=== PATIENT | female | born 1955 | race Caucasian/White ===

== ENCOUNTER → 2016-06-27 | Day surgery (SDC) | payer OTHER ==
[~2016-06-27] VITALS: Ht 157.5 cm; Wt 70.0 kg
[~2016-06-27] MED LIST: ACETAMINOPHEN/HYDROcodone 325 MG/5 MG TAB ONE; ACETAMINOPHEN/HYDROcodone 325 MG/7.5 MG TAB ONE; AMLO10TA2 PO; BUPIVACAINE HCL PF 0.5% 30 ML VIAL ONE; CELE100C PO; CEPH-460 PO; EXFO10TA2 PO; FENO2.5C PO; HYDR-4107 PO; LACTATED RINGER'S 1000 ML INJ 1,000 ML ONE; LEVO.05 PO; LEVO.2 PO; LIDOCAINE HCL 2% 50 ML VIAL ONE; LORTA5 PO; MONT10TA2 PO; NORC5TAB PO; OMEP40CA2 PO; PRAV20TA2 PO; SUCR1TAB PO; TRIAMCINOLONE ACETONIDE 40 MG/ML VIAL ONE; VITA100064 PO; VITA400C28 PO; ZYRT10CA PO; ZYRT10TA12 PO; ceFAZolin INJ 1,000 MG VIAL ONE
[2016-06-27 09:58] VITALS: BP 117/82; PULSE 66; RESP 18; TEMP 98.1; O2SAT 100
[2016-06-27 10:18] LABS: MEAN CELL VOLUME 81.8 FL (80.0-100.0); MEAN CORPUSCULAR HEMOGLOBIN 27.2 PG (27.0-34.0); MEAN CORPUSCULAR HGB CONC 33.2 % (32.0-36.0); PLATELET COUNT 249 TH/MM3 (150-450); RED BLOOD COUNT 4.52 MIL/MM3 (4.00-5.30); REVIEW FLAG FINAL; WHITE BLOOD COUNT 6.3 TH/MM3 (4.0-11.0)
[2016-06-27 12:05] VITALS: BP 135/83; PULSE 74; RESP 16; TEMP 98.1; O2SAT 98
--- NOTE | 2016-06-28 18:57 | EKG ---
Date Performed: 06/27/2016 Time Performed: 10:00:10 PTAGE: 60 years EKG: Sinus rhythm Rightward axis Anteroseptal T wave changes are nonspecific Low QRS voltages in precordial leads T wa ve inversion in V2 is new from the prior tracing Borderline ECG PREVIOUS TRACING : 11/02/2007 16.38 DOCTOR: Rios Mckeon Interpretating Date/Time 06/28/2016 18:56:09
--- NOTE | 2016-06-30 18:12 | MP ---
cc: JACOB HAUSER III, M.D. DATE OF SURGERY: 06/30/2016. PREOPERATIVE DIAGNOSIS: Right carpal tunnel syndrome PROCEDURE PERFORMED: Right open carpal tunnel release SURGEON: Jacob Hauser III, MD. TOURNIQUET TIME: Ten (10) minutes at 200 mmHg. DESCRIPTION OF THE PROCEDURE IN DETAIL: The patient was brought to the operating room and placed supine on the operating table. After the correct site and side of surgery were verified by members of each team in the room multiple times including the patient and myself and after adequate preoperative markings and preoperative written consent were verified by everyone and after adequate preoperative time-out was performed to everyone's satisfaction and after adequate IV sedation had been achieved, the right upper extremity was prepped and draped in the traditional sterile surgical fashion. A 50/50 mixture of 2% plain lidocaine and 0.5% plain Marcaine was infiltrated into the skin and subcutaneous tissue and the base palm. The limb was exsanguinated with a gentle Colt wrap and a highly placed well-padded axillary tourniquet was inflated to 200 mmHg for a total of ten minutes. A longitudinally oriented incision within the skin crease was made at the base of the palm and carried down through skin and subcutaneous tissue. The palmar fascia was retracted in opposite directions. The transverse carpal ligament was identified and divided midline from its proximal-most to its distal-most extents completely freeing the carpal tunnel contents which were obviously under pressure as there was rebound. There was a moderately hypertrophic tenosynovium as well. There were no other anatomic abnormalities. There was no evidence of any mass effect. Thorough irrigation with saline was performed. The skin edges were reapproximated using running and interrupted 4-0 nylon sutures. The hand and arm were thoroughly cleansed and dried. Betadine and Adaptic dressings were applied atop the wound followed by a bulky soft dressing and a circumferential dressing in the usual fashion. The axillary tourniquet was released and the hand and all the fingers became immediately soft, pink and warm and had brisk capillary refill of less than 2 seconds. Sponge, needle, instrument counts were correct at the end of the case as reported by the nurses in the room. MD YASMINE Coffman III/MATT /11:46 AM /6:06 PM
== END | disposition home or self-care (01) ==
LOC: PHSDC 08:09
PROVIDERS: ATTEND Orthopaedic Surgery Hand Surgery
DX: G56.01 Carpal tunnel syndrome, right upper limb (principal); Z01.810 Encounter for preprocedural cardiovascular examination
CPT/HCPCS: 01810; 36415; 64721; 85027; 93005; J0690; J7120; J3301